=== PATIENT | female | born 1970 | race Caucasian/White ===

== ENCOUNTER 2020-03-04 12:07 | Emergency (ER) | payer OTHER, SELFPAY ==
--- NOTE | ~2020-03-04 | CT_ITS ---
EXAMINATION: CTA brain carotid EXAM DATE: 03/04/2020 13:50 INDICATION: Left upper extremity numbness, double vision. TECHNIQUE: Noncontrast head CT. Spiral CTA of the carotid arteries was performed with intravenous i njection 100 cc of Omnipaque 350. Axial, coronal, sagittal reformatted images reviewed. Additional r eformatted images created on dedicated 3-D workstation. NASCET comparable standard used to assess th e degree of arterial stenosis. Spiral CT angiogram cerebral arteries performed with the same intrave nous injection of contrast. Source images of the brain CTA transferred to dedicated workstation for 3 -D rotational image creation. Coronal, sagittal maximum intensity pixel images also reviewed. The d ose-length product (DLP) for this examination was 1612.85 mGy-cm. The exposure was tailored accordi ng to patient size, and iterative reconstruction (ASIR) was used as additional dose reduction techniq ue. There is no prior study for comparison. FINDINGS: There is no carotid arterial sclerosis or stenosis. The left vertebral artery is dominant. There are bilateral posterior communicating artery dominant posterior cerebellar arteries. There is n o carotid or vertebral basilar arterial dissection or fibromuscular dysplasia. There are no cerebral artery aneurysms. There is symmetric cerebral artery arborization. The sagittal, transverse and sigmo id sinuses enhance normally, no venous sinus thrombosis. Internal cerebral veins also enhance normall y. There are surgical changes from suboccipital craniectomy for Chiari malformation. There is no acute i ntraparenchymal hemorrhage. No evidence of intraparenchymal brain mass lesion. No evidence of acute infarction. There is no mass effect or midline shift. There is no obstructive hydrocephalus suspecte d. There are no extra-axial collections. There are no calvarial acute fractures. There are no area s of abnormal enhancement on the postcontrast images. IMPRESSION: 1. No carotid stenosis or acute findings. 2. Surgical changes from posterior fossa decompressive surgery Reviewed, dictated and finalized at location B.
--- NOTE | ~2020-03-04 | XR_ITS ---
EXAMINATION: XR chest 1V portable DATE: 03/04/2020 13:27 INDICATION: Diplopia. Left arm tingling. TECHNIQUE: A single frontal view of the chest was obtained. COMPARISON: Chest 2 views 08/10/2015 FINDINGS: The chest demonstrates clear lungs without pneumonia, pleural effusion, or pneumothorax. Th e heart size is normal. IMPRESSION: 1. No acute cardiopulmonary disease. Reviewed, dictated and finalized at location A.
[2020-03-04 12:15] VITALS: BP 142/76; PULSE 99; RESP 16; TEMP 36.6; O2SAT 99
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
[2020-03-04 13:00] VITALS: BP 150/87; PULSE 95; RESP 16; O2SAT 96
[2020-03-04 13:15] LABS: Basophils Absolute Auto 0.1 K/mm3 (0.0-0.1); Basophils Percent Auto 0.5 % (0.2-1.2); Eosinophils Absolute Auto 0.1 K/mm3 (0-0.3); Eosinophils Percent Auto 0.5 % (0-4.4); Hematocrit 40.3 % (37.0-47.0); Hemoglobin 12.8 g/dL (12.0-15.0); Immature Granulocyte Absolute 0.05 K/mm3 (0.00-0.031); Immature Granulocyte Percent A 0.4 % (0-0.5); Lymphocytes Absolute Auto 2.54 K/mm3 (0.9-3.2); Lymphocytes Percent Auto 22.8 % (18.3-44.2); Mean Corpuscular HGB Conc 31.8 g/dl (32-36); Mean Corpuscular Volume 91.2 fl (80-100); Mean Platelet Volume 10.4 fl (7.4-10.4); Monocytes Absolute Auto 0.7 K/mm3 (0.1-0.6); Monocytes Percent Auto 6.6 % (2.6-8.5); Neutrophils Absolute Auto 7.7 K/mm3 (1.3-6.7); Neutrophils Percent Auto 69.2 % (45.5-73.1); Platelet Count Result 317 k/mm3 (150-375); Red Blood Count 4.42 M/mm3 (4.2-5.4); Red Cell Distribution Width 13.9 % (11.5-14.5); White Blood Count 11.2 K/mm3 (4.5-10.0)
[2020-03-04 13:23] LABS: Alanine Aminotransferase 29 U/L (4-35); Albumin Level 4.2 g/dL (3.5-5.1); Alkaline Phosphatase 127 U/L (38-126); Anion Gap 7 mmol/L (8-16); Aspartate Amino Transferase 33 U/L (14-36); Bilirubin,Total 0.5 mg/dL (0.2-1.3); Blood Urea Nitrogen 10 mg/dL (7-17); Calcium 9.1 mg/dL (8.4-10.2); Carbon Dioxide 30 mmol/L (22-30); Chloride 100 mmol/L (98-107); Estimated CRCL calculation 96 ml/min; Estimated Glomerular Filt Rate > 60; Glucose 89 mg/dL (65-105); Potassium 4.1 mmol/L (3.4-5.0); Sodium 137 mmol/L (137-145)
[2020-03-04 14:00] VITALS: BP 145/83; PULSE 88; RESP 16; O2SAT 99
[2020-03-04 14:11] LABS: Erythrocyte Sedimentation Rate 20 mm/hr (0-20)
[2020-03-04 15:05] VITALS: BP 137/76; PULSE 91; RESP 16; O2SAT 97
== END 2020-03-04 15:05 | disposition home or self-care (01) ==
PROVIDERS: Emergency Provider Emergency Medicine; PCP Family Medicine
DX: H53.2 Diplopia (principal); R20.2 Paresthesia of skin; K58.9 Irritable bowel syndrome, unspecified
CPT/HCPCS: 36415; 70496; 70498; 71045; 80053; 81025; 85025; 85652; 86140; 99284; Q9967

== ENCOUNTER 2021-03-01 15:00 | Outpatient (RCR) | payer OTHER, SELFPAY ==
--- NOTE | 2021-01-31 11:40 | OTOPEVAL ---
OCCUPATIONAL THERAPY INITIAL EVALUATION: 01/31/2021 Thank you for referring Emma Van to [facility].? The patient is scheduled to be seen for therapy? 1x/week for 4 weeks. Please review, sign, date and return this plan of care ABIEL. I agree with and certify that the following plan of care is medically necessary. Referring Physician Date Attending Provider: Mani Mosley *OT Outpatient Evaluation Start: 01/31/21 09:38 Freq: Status: Active Protocol: Document 01/31/21 09:58 KJL (Rec: 01/31/21 11:38 KJL [id number]) Therapy Assessment Status Assessment Status Assessment Status Evaluation Evaluation Information Problem Additional Evaluation Detail Last February of 2020, patient began having numbness, heaviness on L UE/LE hand and arm. Patient initial surgery on October 26, 2020 to make more room on posterior aspect of neck in hopes of decompressing a cyst, patient previously had this same surgery in 2007 and removed the backs of the C1-2. Patient still experienced headaches after this initial surgery. Patient was having cerebral spinal fluid drained weekly until patient had an addition surgery for a drain placement November. After drain placement still having to have MD drain fluid occasionally, on appointment on 01/21/2021 did not have enough fluid to drain. Subjective Information Since February of 2020 patient Query Text:As Reported By Patient/ began experiencing L UE Family numbness, heaviness, weakness. Patient reports difficulty with controlling L UE hand and completing opening, gripping, grasping, lifting items with L UE. Patient reports occasional double vision which has impacted work tasks including computer work. Patient reports surgery was in hopes of resolving L UE symptoms, but has not improved . Prior Level of Function Activity Lev
--- NOTE | 2021-02-02 15:36 | PTOPEVAL ---
Thank you for referring Emma Van to [facility].? The patient is scheduled to be seen for therapy? 2x/week for 4 weeks. Please review, sign, date and return this plan of care ABIEL. I agree with and certify that the following plan of care is medically necessary. Referring Physician Date Referring physician: Mani Mosley MD Past Medical History Source of Past Medical History Patient Neurological History Hx Other Neurological Disorders Yes: chiari malformation- 2 surgeries Cardiovascular History Hx Hypertension Yes Evaluation Information Diagnosis chiari malformation Onset 2003 Additional Evaluation Detail Last February of 2020, patient began having numbness, heaviness on L UE/LE hand and arm. Patient initial surgery on October 26, 2020 to make more room on posterior aspect of neck in hopes of decompressing a cyst. patient previously had this same surgery in 2007 and removed the backs of the C1-2. Patient still experienced headaches after this initial surgery. Patient was having cerebral spinal fluid drained weekly until patient had an addition surgery for a drain placement November. After drain placement still having to fluid drained occasitionally, on appointment on 01/21/2021 did not have enough fluid to drain. Subjective Information She reports the whole left Query Text:As Reported By Patient/ side feels heavy and tingling. Family Hand and UE feels tingling and numb. Her left leg feels numb and heavy. States her left UE does not response as normal with decreased ability to perform UE task. 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 She has not RTW due to on short term disability. 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 Previous Treatments Previous Treatments For This Problem
--- NOTE | 2021-02-17 09:50 | PCPTNOTE ---
Patient called & cancelled scheduled appointment this date, stated I just can't make it today. Will continue per POC.
--- NOTE | 2021-02-22 08:06 | PCPTNOTE ---
Patient called & cancelled scheduled appointment this date due to unknown reason.
--- NOTE | 2021-02-28 08:51 | PCPTNOTE ---
Patient called & cancelled scheduled appointment this date due to unable to make today's visit. Rescheduled for Sunday.
--- NOTE | 2021-03-01 14:14 | OTOPEVAL ---
OCCUPATIONAL THERAPY RE-EVALUATION REPORT AND DISCHARGE SUMMARY 03/01/21 Emma presents today for OT re-evaluation after 4 sessions of therapy for left UE strengthening and coordination as well as oculomotor exercises. Today the patient has return to normal strength and no longer has reports of diplopia. Fine motor coordination in the left hand is slightly below normal limits due to residual deficits with sensation in the left hand. She is currently independent with HEP to continue to work on coordination. No further skilled OT is indicated at this time. Thank you for referring Emma Van to [facility]. Please review, sign, date and return this D/C Note ABIEL. I agree with and certify that the following plan of care is medically necessary. Referring Physician Date Referring Provider: Mani Mosley MD *OT Outpatient Re-Evaluation Start: 01/31/21 09:38 Evaluation Information Problem Diagnosis Chiari malformation Onset 2003 Additional Evaluation Detail Last February of 2020, patient began having numbness, heaviness on L UE/LE hand and arm. Patient initial surgery on October 26, 2020 to make more room on posterior aspect of neck in hopes of decompressing a cyst. patient previously had this same surgery in 2007 and removed the backs of the C1-2. Patient still experienced headaches after this initial surgery. Patient was having cerebral spinal fluid drained weekly until patient had an addition surgery for a drain placement November. After drain placement still having to fluid drained occasionally, on appointment on 01/21/2021 did not have enough fluid to drain. Subjective Information Emma reports no longer Query Text:As Reported By Patient/ having double vision. She Family states she is back to work and having no difficulties with this. She reports that the left arm continues to feel heavy and numb. Reports no changes/improvements with this . 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
--- NOTE | 2021-03-01 16:01 | PTOPEVAL ---
Physical therapy progress note/discharge note Thank you for referring Emma Van to [facility].? She has attended 6 therapy visit related to recent surgery. She demonstrates improved neck motion, improved pain and improved functional mobility. She has achieved or partially achieved her therapy goals at this time. Will DC skilled therapy services with recommendations for her to continue with fitness and exercise program. Please review, sign, date and return this discharge summary ABIEL. I agree with and certify that the following plan of care is medically necessary. Referring Physician Date Attending Provider: Mani Mosley Diagnosis chiari malformation Onset 2003 Additional Evaluation Detail Last February of 2020, patient began having numbness, heaviness on L UE/LE hand and arm. Patient initial surgery on October 26, 2020 to make more room on posterior aspect of neck in hopes of decompressing a cyst. patient previously had this same surgery in 2007 and removed the backs of the C1-2. Patient still experienced headaches after this initial surgery. Patient was having cerebral spinal fluid drained weekly until patient had an addition surgery for a drain placement November. After drain placement still having to fluid drained occasionally, on appointment on 01/21/2021 did not have enough fluid to drain. Subjective Information She is performing her HEP 2-3x Query Text:As Reported By Patient/ /wk. 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 She reports that the left arm continues to feel heavy and numb. 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 She does feel like her hand is better. Reports decreased clumsiness with improved confidence with her standing ability. She is able to move neck with improve motion and without
== END 2021-03-02 15:30 | disposition home or self-care (01) ==
LOC: ANHPT 15:00
PROVIDERS: PCP Family Medicine
DX: G93.5 Compression of brain (principal)
CPT/HCPCS: 97110; 97140; 97162; 97165; 97530

== ENCOUNTER 2022-02-09 10:00 | Outpatient (RCR) | payer OTHER, SELFPAY ==
--- NOTE | 2022-01-12 10:06 | OTOPEVAL ---
OCCUPATIONAL THERAPY INITIAL EVALUATION REPORT 01/12/22 Thank you for referring Emma Van to [facility].? The patient is scheduled to be seen for therapy? 1x/week for 3-4 weeks. Please review, sign, date and return this plan of care ABIEL. I agree with and certify that the following plan of care is medically necessary. Referring Physician Date Referring Provider: Mani Mosley MD *OT Outpatient Evaluation Start: 01/12/22 09:04 Outpatient Past Medical History Past Medical History Source of Past Medical History Recalled from Previous Visit, Confirmed with Patient/Family Neurological History Hx Other Neurological Disorders Yes: ARNOLD CHIARI MALFORMATION, POSTERIOR FOSSA DECOMPRESSION Cardiovascular History Hx Hypertension Yes Gastrointestinal History Hx Cholecystectomy Yes Hx Gastroesophageal Reflux Disease Yes Hx Hernia Yes: HIATAL Reproductive History Hx Section Yes: X2 Evaluation Information Problem Diagnosis Arnold-chiari malformation type 1 Additional Evaluation Detail s/p craniotomy October 2020 Subjective Information Patient presents today stating Query Text:As Reported By Patient/ that she has been having more Family difficulties with her left side. She states that after the craniotomy last year she had some improvement in her symptoms, but she has noticed that they are getting worse. She notes difficulties with sensation on her left side, stating I can't count on my left side , difficulties with picking up items, fear of dropping items. She reports that in the last year her has taken over grocery shopping. 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 She still drives and reports being independent with ADLs, states it just takes longer . 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
--- NOTE | 2022-01-12 11:03 | PTOPEVAL ---
PHYSICAL THERAPY INITIAL EVALUATION. Thank you for referring Emma Van to [facility].? The patient is scheduled to be seen for therapy? 1x/week for 4 weeks. Please review, sign, date and return this plan of care ABIEL. I agree with and certify that the following plan of care is medically necessary. Referring Physician Date Attending Provider: Shahiad Kemp *PT Outpatient Evaluation Start: 01/12/22 Outpatient Past Medical History Neurological History Hx Other Neurological Disorders Yes: ARNOLD CHIARI MALFORMATION, POSTERIOR FOSSA DECOMPRESSION Evaluation Information Diagnosis Arnold-chiari malformation type 1 Subjective Information Pt reports she has little to Query Text:As Reported By Patient/ no endurance, she states this Family is due to her wait and well as her decreased sensation. Pt states simple things like cleaning the house is twice as hard. She states she would like to stay independent for as long as she can and she feels like if she keeps up this way she will be walking with a walker soon. She reports numbness in her legs. Pain Assessment Pain Score 0: Self Report Upper Extremity Range of Motion General Upper Extremity Range of Motion WFL/Left,WFL/Right Lower Extremity Muscle Strength Testing Gross Lower Extremity Strength BLE grossly 5/5 Posture Posture Evaluation View Posterior Lumbar Spine Posture Decreased Lordosis Hip Posture (L) Externally Rotated,(R) Externally Rotated Knee Posture (L) Genu Valgus,(R) Genu Valgus Additional Posture Comments arms held in abduction and hips abducted due to soft tissue restrictions Balance Assessment Cox Balance Assessment COX Balance Evaluation Total Score (/56 42/56 Comments R tandem: 4s on multiple attempts L tandem: 14s on multiple attempts R single leg stance: 10s L single leg stance: <3s Timed Up and Go Test (TUG) (Seconds) 11 Assistive Devices None 5 Time Sit to Stand Time in Seconds 14 5 Time Sit to Stand Comments without the use of UEs Gait Assessment Ambulation Assistive Devices None Gait Pattern Trendelenburg Gait,Wide Based Gait Gait Pattern Observed
--- NOTE | 2022-02-01 11:33 | PCPTNOTE ---
Patient called & cancelled scheduled appointment this date not reason given.
--- NOTE | 2022-02-09 09:35 | OTOPEVAL ---
OCCUPATIONAL THERAPY RE-EVALUATION AND DISCHARGE SUMMARY 02/09/22 Patient referred to outpatient OT with left sided numbness and incoordination with dx of Arnold-Chiari malformation type 2. She is s/p decompression surgery and craniotomy. She continues to report difficulties with using the left side for ADL tasks and unfortunately reports no functional changes since working with therapy. Strength and coordination measurements today show no functional changes at this time. D/C today with HEP. Thank you for referring Emma Van to [facility]. Please review, sign, date and return this D/C Note ABIEL. I agree with and certify that the following plan of care is medically necessary. Referring Physician Date Referring Provider: Mani Mosley MD Re-Evaluation Information Problem Diagnosis Arnold-Chiari malformation type 1 Additional Evaluation Detail s/p craniotomy October 2020 Subjective Information Patient reports no functional Query Text:As Reported By Patient/ changes in the left UE. She Family reports continued numbness and heaviness in the left UE. She reports that she continues to drop items and cannot count on the left arm . She states she tries to use the left arm for as many tasks as possible, such as typing at work. Pain Assessment Timing of Pain Assessment Timing of Pain Assessment Assessment Self Report Self Report Pain Level 0 Pain Score Pain Score 0: Self Report Upper Extremity Range of Motion General Upper Extremity Range of Motion Reason Not Measured WFL/Left,WFL/Right Upper Extremity Muscle Strength Testing General Upper Extremity Strength Reason Not Measured WNL/Left,WNL/Right Gross Upper Extremity Strength Comments UEs are 5/5 and strength is symmetrical. Hand Remote Sensing Scientist/Pinch Strength Assessment Hand Left Remote Sensing Scientist Strength (lbs) 38 Lateral Pinch Strength (lbs) 10 Palmar Pinch Strength (lbs) 8 Hand Remote Sensing Scientist/Pinch Strength Comments Remote Sensing Scientist norm: 50 lbs. Right Remote Sensing Scientist Strength (lbs) 40 Lateral Pinch Strength (lbs) 9 Palmar Pinch Strength (lbs) 7 Hand Remote Sensing Scientist/Pinch Strength Comments Remote Sensing Scientist norm: 55 lbs. 9-Hole Peg Hand Test Hand Left Scoring Time (seconds) 34 Interpretation Moderately Below Normal Comments Norm: 22.5 sec Right Scoring Time (seconds) 28 Interpretation Minimally Below Normal Comments Norm: 20.5 sec Sensation Assessment Location Left Hammond-Rodriguez Radial Normal Hammond-Rodriguez Ulnar Normal Hammond-Rodriguez Median Normal OT Clinical Summary OT Clinical Summary Patient referred to outpatient
--- NOTE | 2022-02-09 10:22 | PTOPEVAL ---
PHYSICAL THERAPY PROGRESS REPORT AND DISCHARGE SUMMARY. Thank you for referring Emma Van to [facility].? The patient is to be discharged from skilled therapy services at this time. Please review, sign, date and return this plan of care ABIEL. I agree with and certify that the following plan of care is medically necessary. Referring Physician Date Attending Provider: Shahida Kemp *PT Outpatient Evaluation Start: 01/12/22 Evaluation Information Diagnosis Arnold-chiari malformation type 1 Subjective Information Pt states she has good days Query Text:As Reported By Patient/ and bad days. She states she Family has not done very well with her walking program. 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 Pain Assessment Pain Score 0: Self Report Lower Extremity Muscle Strength Testing Gross Lower Extremity Strength BLE grossly 5/5 Posture Posture Evaluation View Posterior Lumbar Spine Posture Decreased Lordosis Hip Posture (L) Externally Rotated,(R) Externally Rotated Knee Posture (L) Genu Valgus,(R) Genu Valgus Additional Posture Comments arms held in abduction and hips abducted due to soft tissue restrictions Balance Assessment Cox Balance Assessment COX Balance Evaluation Total Score ( 46/56 Comments Initially: 42/56 02/09/22: 46/56 R tandem: 9s L tandem: 14s R single leg stance: 7s L single leg stance: 5s Timed Up and Go Test (TUG) (Seconds) 10 Assistive Devices None 5 Time Sit to Stand Time in Seconds 13 5 Time Sit to Stand Comments Initially: 14s without the use Query Text:Normative Data: If Greater of UEs Than 15 Seconds, 74% Increase Risk for 02/09/22: 13s without the use Recurrent Falls of UEs Gait Assessment Ambulation Assistive Devices None Gait Pattern Trendelenburg Gait,Wide Based Gait Gait Pattern Observed Decreased Stride Length - Left ,Decreased Stride Length - Right,No Heel Strike - Left,No Heel Strike - Right Other Gait Observations casandra hip ext rot 2 Minute Walk Total Distance Walked (feet) 350 2 M
== END 2022-02-09 12:54 | disposition home or self-care (01) ==
LOC: ANHPT 10:00
PROVIDERS: PCP Family Medicine
DX: G93.5 Compression of brain (principal)
CPT/HCPCS: 97110; 97112; 97161; 97166

== ENCOUNTER → 2022-07-04 14:51 | Outpatient (CLI) | payer OTHER, SELFPAY ==
--- NOTE | ~2022-07-04 | CT_ITS ---
Non-contrast CT scan of the Abdomen and Pelvis Clinical indication: Hematuria Technique: 5 mm axial scans were obtained through the abdomen and pelvis without intravenous or oral contrast. Dose reduction technique was used on this scan by utilizing automated exposure control and iterative reconstruction technique. The dose-length product (DLP) was 1006.49 mGy-cm. Findings: Images through the lung bases reveal no abnormalities. There is no evidence of renal or ureteral calculi. The kidneys and the ureters are nondilated. The liver, spleen, pancreas, and adrenals appear normal. Cholecystectomy clips noted. There is no aor tic aneurysm. There is no evidence of bowel obstruction. Normal appendix. SEMICONDUCTOR WAFERS ETCH OPERATOR shunt in place. Images through the pelvis were performed. There is no evidence of ascites or lymphadenopathy. Urinary bladder unremarkable. Small left adnexal cyst present. Impression: No etiology for hematuria identified. Small left ovarian cyst. SEMICONDUCTOR WAFERS ETCH OPERATOR shunt in place. Reviewed, dictated and finalized at [facility]. 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 Small left ovarian cyst. SEMICONDUCTOR WAFERS ETCH OPERATOR shunt in place.
== END ==
PROVIDERS: PCP Family Medicine; Visit Provider Physician Assistant
DX: R31.9 Hematuria, unspecified (principal); N83.202 Unspecified ovarian cyst, left side
CPT/HCPCS: 74176

== ENCOUNTER 2025-04-14 01:13 | Day surgery (SDC) | payer OTHER, SELFPAY ==
--- OUTSIDE RECORDS SUMMARY | 2025-04-14 01:28 | XMS_ITS | Clinical Summary ---
Author Organization [facility] [address] [place] [address] Care Team Providers Care Plane Tableman Name Role Phone Tatianna Coronado MD Primary Care Provider [phone] Allergies Active Allergy Reactions Criticality Noted Date Comments Sulfa (Sulfonamide Antibiotics) Mental status changes Low 01/19/[address] (PROTONIX) 40 mg EC tabletIndicatio ns:Treatment of Non-Bleeding Gastric Disorder Take 1 tablet (40 mg total) by mouth every morning Active amitriptyline (ELAVIL) 150 mg tabletIndicatio ns:headache Take 100 mg by mouth nightly Active metoprolol XL (TOPROL-XL) 25 mg extended release tabletIndicatio ns:hypertension Take 1 tablet (25 mg total) by mouth nightly 1 Active mupirocin (BACTROBAN) 2 % ointment APPLY TOPICALLY TO THE AFFECTED AREA TWICE DAILY 3 Active diazePAM (VALIUM) 5 mg tablet Take 1 tablet 1 hour prior to MRI scan, may repeat once if needed. Must have minibus driver while taking medication. 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 CSF leak 11/06/2020 Chiari malformation type I 09/21/2020 Overview (09/21/2020): Added automatically from request for surgery [id number] Chronic tension headache 04/25/2011 Arnold-Chiari malformation 01/19/2011 Syringomyelia 01/19/2011 Headache(784.0) 01/19/2011 Encounters Date Type Department Care Team Description 04/01/2025 Telephone [facility] Medicine Scheduling [address] [phone] Casie Dimas NP from Last 3 Months Immunizations Immunization Administration Dates Next Due Influenza, Trivalent, IM (MDV) 04/19/2018 Influenza, Unspecified 04/15/2019 Tdap 02/13/2017 Surgical History Surgery Date Site/Laterality Comments OR DELIVERY ONLY 1991, 1995 Section - (Added by TW Conv) CRANIOTOMY 07/16/2007 - 07/15/2008 CHOLECYSTECTOMY 07/16/1994 - 07/15/1995 Cholecystectomy - (Added by TW Conv) HAND SURGERY 07/16/2007 - 07/15/2008 Left hand lesion COLONOSCOPY LUMBAR PUNCTURE WO INJECTION , DIAGNOSTIC 11/06/2020 N/A CRANIOTOMY 10/26/2020 N/A medial posterior Medical History Medical History Date Comments Personal history of urinary calculi Nephrolithiasis - (Added by TW Conv) Personal history of other di seases of the digestive system History of esophageal reflux - (Added by TW Conv) Hypertension Arnold-Chiari malformation (HCC) Sleep apnea GERD (gastroesophageal reflux disease) Kidney stone Lymphedema Morbid obesity (HCC) Family History Medical History Relation Name Comments Hypertension Father Hypertension - dad (Added by TW Conv) Heart disease Maternal Grandmother Migraines Other Common Migraine (Without Aura) - mom (Added by TW Conv) Stroke Paternal Grandfather Diabetes Sister Diabetes Mellit us - half sister type I (Added by TW Conv) Relation Name Status Comments Father Maternal Grandmother Other Paternal Grandfather Sister Social History Tobacco Use Types Packs/Day Years Used Date Smoking Tobacco: Former Cigarettes 0.5 2 1 988 - 1990 Smokeless Tobacco: Never Tobacco Cessation:Counseling Given: No Alcohol Use Standard Drinks/Week Comments Yes 3 (1 standard drink = 0.6 oz pur e alcohol) AUDIT-C Answer Date Recorded Q1: How often do you have a drink containing alc ohol? Monthly or less 11/16/2021 Q2: How many drinks containi ng alcohol do you have on a typical day when you are drinking? 1 or 2 11/16/2021 Q3: How often do you have si x or more drinks on one occasion? 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 Gender Identity Not on file Sexual Orientation Straight 03/25/2020 12 :19 PM CDT Occupation Industry Job Start Date Job End Date currently employed Not on file Not on file Not on fi le Obstetrics History Last Filed Vital Signs Vital Sign Reading Time Taken Comments Blood Pressure 140/68 08/07/2024 11:49 AM SENIOR CONTROL SYSTEMS ENGINEER Pulse 86 08/07/2024 11:49 AM SENIOR CONTROL SYSTEMS ENGINEER Temperature 36.8 C (98.2 F) 08/07/2024 11:49 AM SENIOR CONTROL SYSTEMS ENGINEER Respiratory Rate 18 08/07/2024 11:49 AM SENIOR CONTROL SYSTEMS ENGINEER Oxygen Saturation 97% 08/07/2024 11:49 AM SENIOR CONTROL SYSTEMS ENGINEER Inhaled Oxygen Concentration - - Weight 117 kg (258 lb) 08/07/2024 11:49 AM SENIOR CONTROL SYSTEMS ENGINEER Height 149.9 cm (4' 11.02) 08/07/2024 11:49 AM SENIOR CONTROL SYSTEMS ENGINEER Body Mass Index 52.08 08/07/2024 11:49 AM SENIOR CONTROL SYSTEMS ENGINEER Plan of Treatment Health Maintenance Due Date Last Done Comments Cervical Cancer Screening 1970 Colon Cancer Screening-Colonoscopy 1970 Depression Screening 1970 Hepatitis C Screening 1970 Hepatitis B Screening 1988 Regular Well Visit/Exam 18-64 1988 Pneumococcal vaccine <65 (1 of 2 - PCV) 1989 Zoster Vaccine (1 of 2) 2020 Influenza Vaccine (#1) 2025 04/15/2019, 2017 Breast Cancer Screening-Mammogram 01/07/2026 01/07/2025, 01/07/2024, 12/19/2022, Additional history exists DTaP/Tdap/Td Vaccine (2 - Td or Tdap) 02/13/2027 02/13/2017 Medical Devices Implanted Type Area Research Director Device Identifier Shelf Expiration Date Model / Serial / Lot [employer] [id number] Alloderm 4x2cm Allograft Medium Graft Skin - [id number] - [id number] Implanted:Qty: 1 on 10/26/2020 by Mani Mosley MD at [facility] N/A: Brain [employer] 03/14/2022 [id number] / [id number] / Medtronic Inc [id number] Rigo Antibiotic Kit Catheter Sterile Latex Free - [id number] Implanted:Qty: 1 on 12/10/2020 by Mani Mosley MD at [facility] Right: Cranial Medtronic Inc 03/17/2022 [id number] / / [id number] Medtronic U[employer] Inc X 99370 Delta Ps Medical [id number] 14mm Csf Medium Pressure Flow Latex Free - [id number] Implanted:Qty: 1 on 12/10/2020 by Mani Mosley MD at [facility] Right: Cranial Medtronic Inc 03/19/2024 [id number] / / [id number] Procedures Procedure Name Priority Date/Time Associated Diagnosis Comments SCREENING MAMMOGRAM BILATERAL W TODD Schedule Routine, Read Routine (OP Routine) 01/07/2025 8:20 AM CDT Screening mammogram, encounter for from Last 3 Months or Most Recently Relevant to Health Maintenance Results * Screening Mammogram Bilateral W Todd (01/07/2025 8:20 AM CDT) Anatomical Region Laterality Modality Breast Bilateral Mammography Impressions 01/08/2025 12:21 PM CDT Bilateral No evidence of malignancy in either breast. OVERALL BI-RADS FINAL ASSESSMENT: 1 - Negative RECOMMENDATION: Recommend bilateral annual screening mammography. Narrative 01/08/2025 12:21 PM CDT EXAMINATION: Screening Mammogram Bilateral W Todd: 01/07/2025 COMPARISON: Relevent prior studies available at the time of interpretation were reviewed, including the most recent mammogram on: 01/07/2024, 12/19/2022, 11/10/2021, 08/19/2020, 08/10/2020, and 06/17/2019. TECHNIQUE: Mammography was performed with 2D and digital breast tomosynthesis (DBT) images. CAD was utilized. BREAST PARENCHYMAL COMPOSITION: There are scattered areas of fibroglandular density. FINDINGS: Bilateral There is no suspicious mass, calcification, or architectural distortion in either breast. us Self Screening Mammogram IMG MAMMO PROCEDURES Fi nal Result from Last 3 Months or Most Recently Relevant to Health Maintenance [facility] ANTHEM ACCESS CHOICE [facility] C[facility]NA [facility] [employer] Advance Directives For more information, please contact: [phone] * Full Code (Latest Code Status on File) Date Activated Date Inactivated Comments 11/08/2020 6:28 AM 11/12/2020 6:09 PM * Full Code Date Activated Date Inactivated Comments 10/26/2020 8:02 PM 10/28/2020 10:46 PM Care Teams Plane Tableman Relationship Specialty Start Date End Date Tatianna Coronado MD PCP - General 03/20/17
[2025-04-14 07:33] VITALS: BP 163/92; PULSE 107; RESP 18; TEMP 37; O2SAT 100
[2025-04-14 07:38] LABS: BEDSIDEPREGUCG Negative (Negative)
[2025-04-14] MEDS: LACTATED RINGERS 1,000 ML 150 ML IV CONT (07:45)
--- NOTE | 2025-04-14 08:07 | WPDANESEPPF ---
Anes - Initial Pre Proc Eval Procedure: Operation Date: 04/14/25 08:30 Proposed Procedures p Esophagogastroduodenoscopy & Colonoscopy - Sivakumar Mclaughlin MD Date/Time: 04/14/25 08:07 Surgeon: Sivakumar Mclaughlin MD Pre Op Diagnosis: Nausea with vomiting,lower abdominal pain Patient Data Age: 55 Gender: F Height: 1.47 m Weight: 117.7 kg Last Vital Signs Temp 98.6 F 04/14/25 07:33 Pulse 107 H 04/14/25 07:33 Resp 18 04/14/25 07:33 BP 163/92 H 04/14/25 07:33 Pulse Ox 100 04/14/25 07:33 O2 Del Method Room Air 04/14/25 07:33 Allergies Allergy/AdvReac Type Severity Reaction Status Date / Time Cephalosporins Allergy Unknown Unknown Verified 04/14/25 07:32 clindamycin Allergy Unknown Unknown Verified 04/14/25 07:32 Sulfa (Sulfonamide Allergy Unknown Unknown Verified 04/14/25 07:32 Antibiotics) Home Medications ?Medication ?Instructions ?Recorded ?Confirmed ?Type lactobacillus combination no.8 3 3,000 mmu cells PO DAILY 09/02/19 04/14/25 History billion cell capsule (Adult Probiotic) pantoprazole 40 mg tablet,delayed 40 mg PO DAILY #90 tabs 03/31/24 04/14/25 Rx release amitriptyline 100 mg tablet 100 mg PO DAILY #30 tabs 11/03/24 04/14/25 Rx metoprolol succinate 25 mg 25 mg PO DAILY #30 tabs 11/03/24 04/14/25 Rx tablet,extended release 24 hr cholecalciferol (vitamin D3) 50 50 mcg PO DAILY #90 caps 03/19/25 04/14/25 Rx mcg (2,000 unit) capsule mupirocin 2 % topical ointment 1 applic topical BID PRN breakouts 03/31/25 03/31/25 History nystatin 100,000 unit/gram topical 1 applic topical BID PRN fungal 03/31/25 03/31/25 History ointment silver sulfadiazine 1 % topical 1 applic topical DAILY #20 grams 03/31/25 04/14/25 Rx cream Laboratory Tests 04/14/25 07:33 POC Urine HCG, Qual Negative (Negative) Patient hx anesthesia problems: none Family hx anesthesia problems: none Results Review: All pre-operative results and documents have been reviewed as part of the pre-operative evaluation. [facility] Past Medical History Medical History Pre-diabetes Glucose intolerance IBS (irritable bowel syndrome) Arnold-Chiari malformation Normal colonoscopy (~1995) GERD (gastroesophageal reflux disease) Migraine Hypertension Surgical History Surgical History H/O craniotomy x2 Previous section x2 Hx of cholecystectomy (~1994) Family History Family History Sibling Diabetes mellitus Father Hypertension Grandparent Cerebrovascular accident Other Family history of malignant neoplasm of breast Social History Social History Smoking status: Former smoker Second hand tobacco smoke exposure: No Smoking end date: 07/16/90 Alcohol intake: current Drinks per week: 4 Substance use: never Substance use type: does not use Lack of Transportation: No Lack of Food: Never True Current Housing: I Have Housing Concerned About Future Housing: No Difficulty Paying Gas/Electric Bills: No Difficulty Paying for Meds: No Currently Unemployed: No Education: High School Diploma/GED Difficulty w/ Childcare or Family Care: No Living arrangements: with family Occupation/Education: occupation Gender identity (if verbalized by the patient): Female Sexual Orientation (if Verbalized by the Patient): Straight or Heterosexual Spiritual care concerns: No Anes - Eval Final PreProcedure Day of Procedure 04/14/25 08:07 Patient weight: super morbidly obese Lungs: normal air movement Airway: Mallampati scale class II and special considerations (L upper tooth chipped. ) Neurological: alert and oriented Last oral intake: >/= 8 hours ASA classification: IV Emergent: no Anesthetic plan: proceed Anesthesia type and monitoring: general GIVS and standard monitoring Results Review: All pre-operative results and documents have been reviewed as part of the pre-operative evaluation. BMI 54, HTN, pre DM, DEMETRA on CPAP, hx of chiari malformation and surgery several times, still w persistent L sided numbness. Informed Consent: The patient's anesthetic plan and its attendant risks and benefits were discussed with the patient/family/POA. Questions were solicited and answers provided to the satisfaction of the patient/family/POA.
--- NOTE | 2025-04-14 08:18 | PM.HPGS ---
History of Present Illness History of Present Illness Consent: Risks, benefits, and alternatives have been discussed and questions answered. Patient agrees to proceed with procedure. Chief complaint: Nausea with vomiting,lower abdominal pain Narrative: Emma Van is a 55 year old female here for egd and screening colonoscopy, h/o gerd controlled with daily ppi Review of Systems Review of Systems: All systems reviewed & are unremarkable except as noted in HPI and below PMFSH Past Medical History Medical History Pre-diabetes Glucose intolerance IBS (irritable bowel syndrome) Arnold-Chiari malformation Normal colonoscopy (~1995) GERD (gastroesophageal reflux disease) Migraine Hypertension Surgical History Surgical History H/O craniotomy x2 Previous section x2 Hx of cholecystectomy (~1994) Family History Family History Sibling Diabetes mellitus Father Hypertension Grandparent Cerebrovascular accident Other Family history of malignant neoplasm of breast Social History Social History Smoking status: Former smoker Second hand tobacco smoke exposure: No Smoking end date: 07/16/90 Alcohol intake: current Drinks per week: 4 Substance use: never Substance use type: does not use Lack of Transportation: No Lack of Food: Never True Current Housing: I Have Housing Concerned About Future Housing: No Difficulty Paying Gas/Electric Bills: No Difficulty Paying for Meds: No Currently Unemployed: No Education: High School Diploma/GED Difficulty w/ Childcare or Family Care: No Living arrangements: with family Occupation/Education: occupation Gender identity (if verbalized by the patient): Female Sexual Orientation (if Verbalized by the Patient): Straight or Heterosexual Spiritual care concerns: No Meds Home Medications and Allergies Home Medications ?Medication ?Instructions ?Recorded ?Confirmed ?Type lactobacillus combination no.8 3 3,000 mmu cells PO DAILY 09/02/19 04/14/25 History billion cell capsule (Adult Probiotic) pantoprazole 40 mg tablet,delayed 40 mg PO DAILY #90 tabs 03/31/24 04/14/25 Rx release amitriptyline 100 mg tablet 100 mg PO DAILY #30 tabs 11/03/24 04/14/25 Rx metoprolol succinate 25 mg 25 mg PO DAILY #30 tabs 11/03/24 04/14/25 Rx tablet,extended release 24 hr cholecalciferol (vitamin D3) 50 50 mcg PO DAILY #90 caps 03/19/25 04/14/25 Rx mcg (2,000 unit) capsule mupirocin 2 % topical ointment 1 applic topical BID PRN breakouts 03/31/25 03/31/25 History nystatin 100,000 unit/gram topical 1 applic topical BID PRN fungal 03/31/25 03/31/25 History ointment silver sulfadiazine 1 % topical 1 applic topical DAILY #20 grams 03/31/25 04/14/25 Rx cream Allergies Allergy/AdvReac Type Severity Reaction Status Date / Time Cephalosporins Allergy Unknown Unknown Verified 04/14/25 07:32 clindamycin Allergy Unknown Unknown Verified 04/14/25 07:32 Sulfa (Sulfonamide Allergy Unknown Unknown Verified 04/14/25 07:32 Antibiotics) Vital Signs Vital Signs - 24 hr 04/14/25 07:33 Temperature 98.6 F Pulse Rate 107 H Respiratory Rate 18 Blood Pressure 163/92 H Pulse Oximetry 100 Oxygen Delivery Room Air Exam Const: General: comfortable and no acute distress Nutritional Appearance: obese HENMT: Face/Nose/Sinus: Normal nares present Eyes: General: appearance normal, both eyes and all related structures Resp: Auscultation: clear to auscultation bilaterally Cardio: Rate: regular rate Rhythm: regular rhythm GI: Inspection: non-distended GI Palp: Yes Soft to palpation Skin: General skin exam: normal color Extrem: General: normal to inspection Psych: Mental Status: mental status grossly normal Assessment and Plan Assessment and plan (1) GERD (gastroesophageal reflux disease): Qualifiers: Esophagitis presence: esophagitis presence not specified Qualified Code(s): K21.9 - Gastro-esophageal reflux disease without esophagitis Code(s): K21.9 - Gastro-esophageal reflux disease without esophagitis Status: Acute Assessment and Plan: controlled with ppi egd (2) Screening for colon cancer: Code(s): Z12.11 - Encounter for screening for malignant neoplasm of colon Status: Acute Assessment and Plan: colonoscopy
[2025-04-14] MEDS: BENZOCAINE (*SP) 60 ML SPRAY CAN (HURRICAINE) 1 SPRAY MUCOUS MEM (08:28)
--- NOTE | 2025-04-14 08:36 | SUR.OPER ---
EGD: [id number] COLON: Start 835
--- NOTE | 2025-04-14 08:37 | S_PTH ---
PATIENT: Emma Monzon LOC: [facility] Gillespie#:[id number] AGE/SX: 55/F ROOM: RE04/14/[address]: Sivakumar Mclaughlin MD : 1970 BED: DIS: 04/14/2025 SPEC #: [id number] RECD: 04/14/25 10:06 STATUS: TARAN RAYMUNDO #: [id number] RADHIKA: 04/14/25 08:[address]: Sivakumar Mclaughlin DEPT: [facility] Surgical RECD BY: Erika Morales ENTERED: 04/14/25 10:07 SP TYPE: Surgical OTHR DR: Alicia Rogel, KAVIN Tissues: A - Gastric Biopsy B - Gastric Polyp Procedures: Hematoxylin and Eosin Stain Gross and Microscopic Level 4
[2025-04-14 08:48] VITALS: BP 109/61; PULSE 91; RESP 28; O2SAT 100
[2025-04-14 08:58] VITALS: BP 121/67; PULSE 90; RESP 22; O2SAT 98
[2025-04-14 09:08] VITALS: BP 140/78; PULSE 88; RESP 18; O2SAT 98
== END 2025-04-14 09:16 | disposition home or self-care (01) ==
PROVIDERS: Anesthesiology; PCP Clinical Nurse Specialist; Referring Provider Nurse Practitioner Family; Visit Provider Internal Medicine Gastroenterology
PROC: 0DJ08ZZ Inspection of Upper Intestinal Tract, Via Natural or Artificial Opening Endoscopic (ICD-10-PCS; CPT 45378; principal; 2025-04-14 08:30)
DX: Z12.11 Encounter for screening for malignant neoplasm of colon (principal); K21.9 Gastro-esophageal reflux disease without esophagitis; K64.8 Other hemorrhoids; K31.7 Polyp of stomach and duodenum; K29.50 Unspecified chronic gastritis without bleeding; I10 Essential (primary) hypertension; R73.03 Prediabetes; K58.9 Irritable bowel syndrome, unspecified; Q07.00 Arnold-Chiari syndrome without spina bifida or hydrocephalus; G47.33 Obstructive sleep apnea (adult) (pediatric); E66.01 Morbid (severe) obesity due to excess calories; Z68.43 Body mass index [BMI] 50.0-59.9, adult; Z99.89 Dependence on other enabling machines and devices; Z98.890 Other specified postprocedural states; Z90.49 Acquired absence of other specified parts of digestive tract; Z87.891 Personal history of nicotine dependence; Z80.3 Family history of malignant neoplasm of breast
CPT/HCPCS: 43239; 45378; 88305; J2003; J2704; J7120